=== PATIENT | male | born 1950 | race African-American/Black ===

== ENCOUNTER 2023-06-05 19:25 | Emergency (ER) | payer OTHER ==
[2023-06-05 20:45] LABS: #Monocytes 1.2 thou/uL (0.11-0.59); #Neutrophils 7.7 thou/uL (1.40-6.50); %Basophils 0.2 % (0.0-1.0); %Lymphocytes 6.6 % (21.0-51.0); %Monocytes 12.8 % (0.0-10.0); %Neutrophils 80.1 % (42.0-75.0); Hematocrit 32.5 % (42.0-52.0); Hemoglobin 10.9 g/dL (14.0-18.0); Mean Corpuscular HGB CONC 33.5 g/dL (32.0-36.0); Mean Corpuscular Hemoglobin 31.4 pg (27.0-31.0); Mean Corpuscular Volume 93.7 fl (78.0-98.0); Mean Platelet Volume 9.9 fL (7.4-10.4); Platelet Count 170 10x3/uL (130-400); RBC Distribution Width 12.5 % (11.5-14.5); Red Blood Cell (RBC) Count 3.47 mill/uL (4.70-6.10); White Blood Cell (WBC) Count 9.6 10x3/uL (4.8-10.8)
[2023-06-05 21:11] LABS: ALT (SGPT) 18 U/L (8-55); AST (SGOT) 23 U/L (5-34); Albumin 3.5 g/dL (3.4-4.8); Alkaline Phosphatase 110 U/L (40-110); Anion Gap 13 mmol/L (10-20); BUN (Urea Nitrogen) 14 mg/dL (8.4-25.7); Bilirubin, Total 0.6 mg/dL (0.2-1.2); Calc. Creatinine Clearance 0 mL/min (70-130); Calcium 8.7 mg/dL (7.8-10.44); Carbon Dioxide 19 mmol/L (23-31); Chloride 102 mmol/L (98-107); Estimated GFR 70; Globulin 4.2 g/dL (2.4-3.5); Glucose 120 mg/dL (83-110); Potassium 3.8 mmol/L (3.5-5.1); Protein, Total 7.7 g/dL (5.8-8.1); Sodium 130 mmol/L (136-145)
[2023-06-05] MEDS ORDERED: Acetaminophen 500 MG TAB ONE (21:39)
[2023-06-05 22:19] LABS: SARS-CoV-2 NAA Rapid Test DETECTED (NotDetected)
== END 2023-06-05 23:03 ==
LOC: ERS 19:25
DX: U07.1 COVID-19 (principal); R55 Syncope and collapse
CPT/HCPCS: 36415; 71045; 80053; 83605; 85025; 87040; 93005